=== PATIENT | male | born 1950 | race Caucasian/White ===

== ENCOUNTER → 2024-04-30 08:09 | Outpatient (REF) | payer BC, SELFPAY | LOC: RCS 08:09 | PROVIDERS: ATTENDING PHYSICIAN Internal Medicine Cardiovascular Disease; FAMILY PHYSICIAN Family Medicine | DX: I25.10 Atherosclerotic heart disease of native coronary artery without angina pectoris (principal); R06.02 Shortness of breath | CPT/HCPCS: 93017; 93350; Q9957 ==